=== PATIENT | female | born 1955 | race Two or more races ===

== ENCOUNTER → 2023-08-20 08:00 | Outpatient (REF) | payer MEDICARE, BC, SELFPAY | LOC: HWWDC 08:00 | PROVIDERS: ATTENDING PHYSICIAN Nurse Practitioner Adult Health; FAMILY PHYSICIAN Internal Medicine | DX: Z12.31 Encounter for screening mammogram for malignant neoplasm of breast (principal) | CPT/HCPCS: 77063; 77067 ==

== ENCOUNTER → 2023-10-22 09:10 | Outpatient (REF) | payer MEDICARE, BC, SELFPAY | LOC: WDC 09:10 | PROVIDERS: ATTENDING PHYSICIAN Nurse Practitioner Adult Health; FAMILY PHYSICIAN Internal Medicine | DX: R92.2 Inconclusive mammogram (principal) | CPT/HCPCS: 76641 ==

== ENCOUNTER → 2023-11-23 14:24 | Outpatient (REF) | payer MEDICARE, BC, SELFPAY | LOC: RAD 14:24 | DX: R22.32 Localized swelling, mass and lump, left upper limb (principal) | CPT/HCPCS: 76882 ==